=== PATIENT | male | born 1985 | race Caucasian/White ===

== ENCOUNTER 2021-04-17 11:11 | Emergency (ER) | payer BC ==
[~2021-04-17] VITALS: Ht 193 cm; Wt 97.5 kg
[2021-04-17 11:36] LABS: RED BLOOD COUNT 5.16 M/UL (4.20-5.50); WHITE BLOOD COUNT 8.6 K/UL (4.5-11.0)
[2021-04-17 12:06] LABS: BUN/CREATININE RATIO 16 (0-10)
== END 2021-04-17 12:30 | disposition home or self-care (01) ==
LOC: ER1 11:11
PROVIDERS: Nurse Practitioner
DX: U07.1 COVID-19 (principal); Z23 Encounter for immunization
CPT/HCPCS: 71045; 80053; 82550; 82553; 83874; 84484; 85025; 99285; M0245